=== PATIENT | male | born 1980 | race Caucasian/White ===

== ENCOUNTER 2019-04-17 17:30 | Emergency (ER) | payer BC, MEDICAID | END 2019-04-17 18:08 | disposition other institution (70) | LOC: JP.ED 17:30 | DX: Z53.21 Procedure and treatment not carried out due to patient leaving prior to being seen by health care provider (principal) ==

== ENCOUNTER 2021-07-18 15:41 | Emergency (ER) | payer OTHER, MEDICAID ==
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
[2021-07-18] MEDS ORDERED: HYDROmorphone 1 MG/ML Syringe IM ONE (16:51)
[2021-07-18] MEDS: Sodium Chloride 0.9% 10 ML Syringe FLUSH PRN ×2 (17:29→17:33)
[2021-07-18] MEDS ORDERED: Iopamidol 612 MG/ML 150 ML Bottle IV SCH (17:30)
[2021-07-18] MEDS ORDERED: Sodium Chloride 0.9% 80 ML IV SCH (17:30)
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
== END 2021-07-18 18:51 | disposition home or self-care (01) ==
LOC: JP.ED 15:41
DX: S22.32XA Fracture of one rib, left side, initial encounter for closed fracture (principal); S39.011A Strain of muscle, fascia and tendon of abdomen, initial encounter; Z88.0 Allergy status to penicillin; Z72.0 Tobacco use; V57.6XXA Passenger in pick-up truck or van injured in collision with fixed or stationary object in traffic accident, initial encounter; Y92.410 Unspecified street and highway as the place of occurrence of the external cause
CPT/HCPCS: 36415; 74177; 80053; 85027; 96372; 99284; J1170; Q9967

== ENCOUNTER 2021-07-20 17:50 | Emergency (ER) | payer OTHER, MEDICAID ==
[2021-07-20] MEDS ORDERED: Sodium Chloride 0.9% 1,000 ML IV SCH (18:30)
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
[2021-07-20] MEDS ORDERED: HYDROmorphone 0.5 MG/0.5 ML Syringe IVPUSH ONE ×2 (18:56→20:24)
[2021-07-20] MEDS ORDERED: Sodium Chloride 0.9% 80 ML IV SCH (19:30)
[2021-07-20] MEDS ORDERED: Iopamidol 612 MG/ML 150 ML Bottle IV SCH (19:30)
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
== END 2021-07-20 20:44 | disposition home or self-care (01) ==
LOC: JP.ED 17:50
DX: S22.32XA Fracture of one rib, left side, initial encounter for closed fracture (principal); S30.1XXA Contusion of abdominal wall, initial encounter; J90 Pleural effusion, not elsewhere classified; Z88.0 Allergy status to penicillin; V89.2XXA Person injured in unspecified motor-vehicle accident, traffic, initial encounter; Y92.410 Unspecified street and highway as the place of occurrence of the external cause
CPT/HCPCS: 36415; 74177; 80053; 81001; 82272; 85025; 86140; 96374; 96376; 99284; J1170; J7030; Q9967

== ENCOUNTER 2021-07-26 11:43 | Emergency (ER) | payer OTHER, MEDICAID ==
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
[2021-07-26] MEDS ORDERED: Sodium Chloride 0.9% 10 ML Syringe FLUSH PRN (14:52)
[2021-07-26] MEDS ORDERED: LORazepam 2 MG/ML SDV IVPUSH ONE (14:53)
[2021-07-26] MEDS ORDERED: Famotidine 20 MG/2 ML SDV IVPUSH ONE (14:53)
[2021-07-26] MEDS ORDERED: HYDROmorphone 0.5 MG/0.5 ML Syringe IVPUSH ONE ×2 (14:54→16:47)
[2021-07-26] MEDS ORDERED: Sodium Chloride 0.9% 1,000 ML IV SCH (15:00)
[2021-07-26] MEDS ORDERED: Sodium Chloride 0.9% 10 ML Syringe FLUSH ONE (15:14)
[2021-07-26] MEDS ORDERED: Sodium Chloride 0.9% 80 ML IV SCH (15:15)
[2021-07-26] MEDS ORDERED: Iopamidol 612 MG/ML 150 ML Bottle IV SCH (15:15)
--- NOTE | 2021-07-26 16:35 | CRLCT ---
For Patients: As a result of the Cures Act, medical imaging exams and procedure reports are released immediately into your electronic medical record. You may view this report before your referring provider. If you have questions, please contact your health care provider. Indication: Abdominal pain Technique: Contrast-enhanced CT abdomen and pelvis Comparison: CT abdomen and pelvis dated 07/20/2021 Findings: The heart size is normal. The lung bases are clear. Mild fatty appearance liver. Gallbladder pancreas adrenal glands spleen unremarkable. No aortic aneurysm. Symmetric enhancement of kidneys diverticulosis no findings for diverticulitis. Normal appendix. There may some very subtle mesenteric stranding in the right lower quadrant this is unclear clear etiology the adjacent bowel appears normal. Fat containing inguinal hernias. Lumbar fusion change no suspicious bony lesions. Impression: 1. Possible subtle mesenteric stranding in the right lower quadrant of unclear etiology. Adjacent bowel appears unremarkable. There is otherwise no acute findings in the abdomen or pelvis. Normal appendix. Please note that all CT scans at this facility use dose modulation, iterative reconstruction, and/or weight-based dosing when appropriate to reduce radiation dose to as low as reasonably achievable. Dictated by Kaitlin Jernigan MD @ 07/26/2021 4:34:46 PM (Electronically Signed)
[2021-07-26] MEDS ORDERED: hydrOXYzine HCL 100 MG/2 ML SDV IM ONE (16:47)
[2021-07-26] MEDS ORDERED: Sodium Chloride 0.9% 1,000 ML IV ONE (17:53)
[2021-07-26] MEDS ORDERED: Ketorolac 30 MG/ML SDV IVPUSH ONE (17:55)
[2021-07-26] MEDS ORDERED: Amitriptyline 25 MG Tab PO ONE (18:19)
== END 2021-07-26 18:43 | disposition home or self-care (01) ==
LOC: JP.ED 11:43
DX: S22.32XA Fracture of one rib, left side, initial encounter for closed fracture (principal); R10.11 Right upper quadrant pain; R10.12 Left upper quadrant pain; R10.13 Epigastric pain; D72.829 Elevated white blood cell count, unspecified; Z72.0 Tobacco use; Z88.0 Allergy status to penicillin; V89.2XXA Person injured in unspecified motor-vehicle accident, traffic, initial encounter
CPT/HCPCS: 36415; 74177; 80053; 81001; 82150; 83605; 83690; 85025; 96372; 96374; 96375; 96376; 99284; A9270; J1170; J1885; J2060; J3410; J3490; J7030; Q9967

== ENCOUNTER 2025-05-13 10:14 | Emergency (ER) | payer MEDICAID, OTHER ==
[2025-05-13 10:55] LABS: BASOPHILS ABSOLUTE AUTO 0.06 K/uL (0.00-0.10); BASOPHILS PERCENT AUTO 0.7 % (0.1-1.3); EOSINOPHILS ABSOLUTE AUTO 0.10 K/uL (0.00-0.40); EOSINOPHILS PERCENT AUTO 1.1 % (0.0-5.4); IMMATURE GRAN PERCENT AUTO 0.2 % (0.0-0.7); LYMPHOCYTES ABSOLUTE AUTO 2.17 K/uL (0.8-3.3); LYMPHOCYTES PERCENT AUTO 23.9 % (11.4-47.7); MONOCYTES ABSOLUTE AUTO 0.80 K/uL (0.20-0.90); MONOCYTES PERCENT AUTO 8.8 % (3.3-12.6); NEUTROPHILS ABSOLUTE AUTO 5.93 K/uL (1.0-7.6); NEUTROPHILS PERCENT AUTO 65.3 % (40.0-78.1); PLATELET COUNT,PLT 309 K/uL (130-375); RED BLOOD CELL COUNT 5.32 M/uL (4.14-5.76); WHITE BLOOD CELL COUNT,WBC 9.1 K/uL (3.2-11.0)
[2025-05-13 10:58] LABS: BASE EXCESS VENOUS 2.6 mm/L; BICARBONATE,VENOUS 27.6 mmol/L; O2 SATURATION VENOUS 64.7; OXYHEMOGLOBIN 60.9 %; PCO2 VENOUS 45.7 mm/Hg; PH,VENOUS 7.399 (7.350-7.450); PO2 VENOUS 36.1 mm/Hg; TOTAL HEMOGLOBIN 16.7 g/dL (13.5-18.0)
[2025-05-13 10:58] LABS: IMMATURE GRAN ABSOLUTE AUTO 0.02 K/uL (0.00-0.23)
[2025-05-13 11:00] LABS: APPEARANCE,URINE SLIGHTLY CLOUDY (CLEAR); GLUCOSE,URINE NEGATIVE (NEGATIVE); OCCULT BLOOD,URINE NEGATIVE (NEGATIVE)
[2025-05-13 11:01] LABS: INR 1.0
[2025-05-13 11:09] LABS: AMPHETAMINES SCREEN, URINE PRESUMPTIVE POSITIVE (NEGATIVE); METHADONE SCREEN, URINE NEGATIVE (NEGATIVE); METHAMPHETAMINES SCREEN, URINE NEGATIVE (NEGATIVE); OXYCODONE SCREEN,URINE NEGATIVE (NEGATIVE); PROPOXYPHENE SCREEN,URINE NEGATIVE (NEGATIVE); SQUAMOUS EPITHELIAL CELLS,UR NOT SEEN /HPF; THC SCREEN,URINE 50 NG/ML PRESUMPTIVE POSITIVE (NEGATIVE); UROTHELIAL CELLS,URINE NOT SEEN /HPF
[2025-05-13 11:10] LABS: A/G RATIO 1.0 (1.2-2.2); ALANINE AMINOTRANSFERASE,ALT 23 U/L (12-78); ASPARTATE AMNIOTRANSFERASE,AST 21 U/L (15-37); BILIRUBIN TOTAL 0.6 mg/dL (0.2-1.0); BLOOD UREA NITROGEN,BUN 15 mg/dL (7-18); CARBON DIOXIDE,CO2 29 mmol/L (21-32); CHLORIDE,CL 102 mmol/L (100-108); CREATININE 1.1 mg/dL (0.8-1.3); EST CRCL DRUG DOSING (CG) 91.12 mL/min; ESTIMATED GFR 83 mL/min (>60); GLUCOSE RANDOM 118 mg/dL (74-106); POTASSIUM,K 4.4 mmol/L (3.6-5.2); PROTEIN TOTAL,TP 8.1 g/dL (6.4-8.2); SODIUM,NA 139 mmol/L (140-148); TROPONIN I HIGH SENSITIVITY 7.1 pg/mL (<=60.3)
[2025-05-13 11:13] LABS: CREATINE KINASE,CK 54.0 U/L (39-308)
[2025-05-13] MEDS: Ondansetron 4 MG/2 ML SDV IVPUSH ONE ×2 (12:00→16:39)
== END 2025-05-13 19:40 ==
LOC: JP.ED 10:14
DX: T42.8X2A Poisoning by antiparkinsonism drugs and other central muscle-tone depressants, intentional self-harm, initial encounter (principal); Z88.5 Allergy status to narcotic agent; Z88.0 Allergy status to penicillin
CPT/HCPCS: 36415; 71045; 80053; 80143; 80179; 80305; 80307; 81001; 82550; 82803; 83605; 83735; 84484; 85025; 85610; 93005; 96361; 96374; 96376; 99285; A9270; J2405; J7030; C1758